=== PATIENT | female | born 1940 | race African-American/Black ===

== ENCOUNTER 2021-07-16 12:04 | Emergency (ER) | payer OTHER ==
[~2021-07-16] VITALS: Ht 160 cm; Wt 78.0 kg
[2021-07-16] MEDS ORDERED: P20 PO (12:57)
[2021-07-16 13:05] VITALS: BP 145/81
== END 2021-07-16 13:15 | disposition home or self-care (01) ==
LOC: ER 12:28
DX: M10.072 Idiopathic gout, left ankle and foot (principal); I10 Essential (primary) hypertension; E78.00 Pure hypercholesterolemia, unspecified; J44.9 Chronic obstructive pulmonary disease, unspecified; Z85.9 Personal history of malignant neoplasm, unspecified; Z90.710 Acquired absence of both cervix and uterus; Z98.890 Other specified postprocedural states
CPT/HCPCS: 99283

== ENCOUNTER 2021-07-29 13:01 | Emergency (ER) | payer OTHER ==
[~2021-07-29] VITALS: Ht 160 cm; Wt 78.0 kg
[~2021-07-29 13:01] MED LIST: P20 PO
[2021-07-29] MEDS ORDERED: KETOROLAC 60MG/2ML VIAL IM ONE (15:00)
[2021-07-29] MEDS ORDERED: INDO50CA98 MT (15:55)
[2021-07-29 16:00] VITALS: BP 143/81
== END 2021-07-29 16:00 | disposition home or self-care (01) ==
LOC: ER 13:01
DX: M10.9 Gout, unspecified (principal); J44.1 Chronic obstructive pulmonary disease with (acute) exacerbation; I10 Essential (primary) hypertension; E78.00 Pure hypercholesterolemia, unspecified; Z98.890 Other specified postprocedural states
CPT/HCPCS: 73620; 96372; 99283; J1885